=== PATIENT | male | born 1975 | race Caucasian/White ===

== ENCOUNTER → 2019-08-20 | Day surgery (SDC) | payer BC ==
[~2019-08-20] MED LIST: MIDAZOLAM HCL 2 MG/2 ML VIAL ONE; PROPOFOL IV EMULSION 10 MG/ML 20 ML VIAL ONE; PROPOFOL IV EMULSION 10 MG/ML 50 ML VIAL ONE
[2019-08-20 12:25] VITALS: BP 126/85
--- NOTE | 2019-08-20 19:35 | Operative Report ---
DATE OF PROCEDURE: 08/20/2019 SURGEON: Pito Blanc MD PROCEDURE PERFORMED: Colonoscopy. PREOPERATIVE DIAGNOSIS: Hematochezia. POSTOPERATIVE DIAGNOSIS: Colon polyp in the ascending colon and internal hemorrhoids. PREOPERATIVE MEDICATIONS: Consisted of general anesthesia. DESCRIPTION OF PROCEDURE: Using an [employer] video colonoscope was inserted into the patient's rectum and advanced without difficulty to the level of the cecum. The colon was studied from that level back down to the rectum. 1 cm size benign polypoid lesion was present in the mid ascending colon and removed with electrical snare cautery. No other polyps were seen. The colonoscope was down to the rectum and down in the rectum was evidence of internal hemorrhoids. The colonoscope was withdrawn from the patient's rectum and the procedure was ended. In conclusion, we have a benign ascending colon polyp, which was removed and internal hemorrhoids present. Pito Blanc MD SAF/MODL /[id number]
== END | disposition home or self-care (01) ==
LOC: OR 08:21
PROVIDERS: ATTEND Internal Medicine Gastroenterology
DX: K92.1 Melena (principal); D12.2 Benign neoplasm of ascending colon; K64.8 Other hemorrhoids; Z88.0 Allergy status to penicillin; Z01.810 Encounter for preprocedural cardiovascular examination; Z68.34 Body mass index [BMI] 34.0-34.9, adult
CPT/HCPCS: 45385; 93005; J2250; J2704 ×2; 45384